=== PATIENT | female | born 1975 | race Caucasian/White ===

== ENCOUNTER 2020-11-22 10:29 | Outpatient (CLI) | payer OTHER, SELFPAY ==
--- NOTE | ~2020-11-22 | MM_ITS ---
EXAMINATION: MM screening padma BI w shaina HISTORY: Screening TECHNIQUE: Craniocaudal and mediolateral oblique 3-D tomosynthesis images were obtained and synthetic 2-D images were generated. CAD analysis was submitted and interpreted. COMPARISON: Comparison to multiple prior studies sequentially, with oldest reviewed study dated 07/26. BREAST PARENCHYMAL COMPOSITION: There are scattered areas of fibroglandular density. FINDINGS: There is a focal asymmetry inferiorly in the left breast, middle third on MLO view. The rig ht breast is stable without evidence for malignancy. IMPRESSION: 1. New focal asymmetry inferiorly in the left breast on MLO view. 2. Additional mammographic views and possible breast ultrasound are recommended. BI-RADS Category 0: Incomplete: Needs additional imaging evaluation. Reviewed, dictated and finalized at location A. KLAYER PAVING BRICK IMPRESSION: 1. New focal asymmetry inferiorly in the left breast on MLO view. 2. Additional mammographic views and possible breast ultrasound are recommended . BI-RADS Category 0: Incomplete: Needs additional imaging evaluation.
== END 2020-11-22 10:30 | disposition home or self-care (01) ==
LOC: ANHIMG 10:36
PROVIDERS: Visit Provider Obstetrics & Gynecology
DX: Z12.31 Encounter for screening mammogram for malignant neoplasm of breast (principal); R92.8 Other abnormal and inconclusive findings on diagnostic imaging of breast
CPT/HCPCS: 77063; 77067

== ENCOUNTER 2020-12-20 13:00 | Outpatient (CLI) | payer OTHER, SELFPAY ==
--- NOTE | ~2020-12-20 | MMUS_ITS ---
EXAMINATION: MM diagnostic mammo unilat LT, US breast LT limited HISTORY: Left breast asymmetry on screening mammogram TECHNIQUE: Additional 3-D tomosynthesis images of the left breast were performed and synthetic 2-D im ages were generated. CAD analysis was submitted and interpreted. High resolution limited left breast ultrasound was performed. COMPARISON: 11/22/2020, 11/08/2019, 11/04/2018 FINDINGS: MAMMOGRAPHIC FINDINGS: There is 6 mm x 4 mm oval, circumscribed, equal density mass in the middle third of the outer breast at the 9:00 location 6 cm from the nipple. ULTRASOUND: There is no evidence of focal abnormal solid or cystic lesion in the vicinity of the mammographic fin ding in question. IMPRESSION: 1. Probably benign left breast mass. 2. Recommend 6 month follow-up left diagnostic mammogram and ultrasound if necessary. BI-RADS category 3, probably benign findings. Reviewed, dictated and finalized at location A. RTISEMENT DISTRIBUTOR IMPRESSION: 1. Probably benign left breast mass. 2. Recommend 6 month follow-up left diagnostic mammogram and ultrasound if nece ssary. BI-RADS category 3, probably benign findings.
== END 2020-12-20 13:01 | disposition home or self-care (01) ==
PROVIDERS: Visit Provider Obstetrics & Gynecology
DX: R92.8 Other abnormal and inconclusive findings on diagnostic imaging of breast (principal)
CPT/HCPCS: 76642; 77065

== ENCOUNTER 2021-05-27 11:25 | Outpatient (CLI) | payer OTHER, SELFPAY ==
--- NOTE | ~2021-05-27 | MMUS_ITS ---
EXAMINATION: MM diagnostic padma LT w shaina, US breast LT limited HISTORY: Follow-up left breast mass TECHNIQUE: Additional 3-D tomosynthesis images of the left breast were performed and synthetic 2-D im ages were generated. CAD analysis was submitted and interpreted. High resolution left breast ultrasou nd was performed. COMPARISON: Comparison to multiple prior studies sequentially, with oldest reviewed study dated 01/10/2016. BREAST PARENCHYMAL COMPOSITION: Breast composed of scattered areas of fibroglandular density. FINDINGS: MAMMOGRAPHIC FINDINGS: There are no suspicious masses, calcifications or architectural distortion left breast to suggest mal ignancy. ULTRASOUND: Normal heterogeneous echotexture without focal solid or cystic mass. IMPRESSION: 1. No evidence for malignancy in the left breast. 2. Routine yearly screening mammogram and regular clinical breast examination are recommended. BI-RADS Category 1: Negative Reviewed, dictated and finalized at location A. IMPRESSION: 1. No evidence for malignancy in the left breast. 2. Routine yearly screening mammogram and regular clinical breast examination a re recommended. BI-RADS Category 1: Negative
== END 2021-05-27 11:26 | disposition home or self-care (01) ==
LOC: ANHIMG 11:26
PROVIDERS: Visit Provider Obstetrics & Gynecology
DX: R92.8 Other abnormal and inconclusive findings on diagnostic imaging of breast (principal)
CPT/HCPCS: 76642; 77061; 77065; G0279

== ENCOUNTER 2022-01-14 08:53 | Outpatient (CLI) | payer OTHER, SELFPAY ==
--- NOTE | ~2022-01-14 | MM_ITS ---
EXAMINATION: MM screening padma BI w shaina HISTORY: Screening mammogram TECHNIQUE: Craniocaudal and mediolateral oblique 3-D tomosynthesis images were obtained and synthetic 2-D images were generated. Bilateral rotated lateral CC views. CAD analysis was submitted and interp reted. COMPARISON: 05/27/2021 diagnostic left mammogram and limited left breast ultrasound examination 12/20/2020 diagnostic left mammogram and limited left breast ultrasound 11/22/2020, 11/08/2019, 11/04/2018 bilateral screening mammogram examinations BREAST PARENCHYMAL COMPOSITION: There are scattered areas of fibroglandular density. FINDINGS: There is no evidence of suspicious mass, calcification, or architectural distortion to sugg est malignancy in either breast. There has been no suspicious interval change. IMPRESSION: 1. No mammographic evidence of malignancy. 2. Recommend routine screening mammography in one year. BI-RADS Category 1: Negative Reviewed, dictated and finalized at location A.
== END 2022-01-14 08:54 | disposition home or self-care (01) ==
PROVIDERS: Visit Provider Obstetrics & Gynecology
DX: Z12.31 Encounter for screening mammogram for malignant neoplasm of breast (principal)
CPT/HCPCS: 77063; 77067

== ENCOUNTER 2022-12-01 10:59 | Outpatient (CLI) | payer OTHER, SELFPAY ==
[2022-12-01 11:24] LABS: Basophils Percent Auto 0.6 % (0.2-1.2); Eosinophils Absolute Auto 0.1 K/mm3 (0-0.3); Hematocrit 36.8 % (37.0-47.0); Hemoglobin 11.9 g/dL (12.0-15.0); Immature Granulocyte Absolute 0.02 K/mm3 (0.00-0.031); Immature Granulocyte Percent A 0.3 % (0-0.5); Lymphocytes Absolute Auto 2.25 K/mm3 (0.9-3.2); Lymphocytes Percent Auto 32.8 % (18.3-44.2); Mean Corpuscular HGB Conc 32.3 g/dl (32-36); Mean Corpuscular Hemoglobin 28.1 pg (26-34); Mean Platelet Volume 10.3 fl (7.4-10.4); Monocytes Absolute Auto 0.4 K/mm3 (0.1-0.6); Neutrophils Absolute Auto 4.1 K/mm3 (1.3-6.7); Neutrophils Percent Auto 59.3 % (45.5-73.1); Platelet Count Result 317 k/mm3 (150-375); Red Blood Count 4.23 M/mm3 (4.2-5.4); Red Cell Distribution Width 13.8 % (11.5-14.5); White Blood Count 6.9 K/mm3 (4.5-10.0)
[2022-12-01 11:30] LABS: Alanine Aminotransferase 14 U/L (6-35); Albumin Level 4.5 g/dL (3.5-5.1); Alkaline Phosphatase 57 U/L (38-126); Anion Gap 6 mmol/L (8-16); Aspartate Amino Transferase 25 U/L (14-36); Bilirubin,Total 0.5 mg/dL (0.2-1.3); Blood Urea Nitrogen 12 mg/dL (7-17); Carbon Dioxide 24 mmol/L (22-30); Chloride 104 mmol/L (98-107); Cholesterol 218 mg/dL (0-200); Estimated Glomerular Filt Rate > 60; Glucose 105 mg/dL (65-110); HDL Direct 48 mg/dL; Potassium 3.7 mmol/L (3.4-5.0); Sodium 134 mmol/L (137-145); Triglycerides 84 mg/dL (<150)
[2022-12-01 11:40] LABS: LDL Cholesterol Direct 117 mg/dL
[2022-12-01 12:02] LABS: Vitamin D 25 Hydroxy 30.7 ng/mL
[2022-12-01 12:10] LABS: HIV 1/2 Ab P24 Ag Result Negative (Negative)
[2022-12-01 12:15] LABS: Hepatitis B Surface Antigen Negative (Negative)
[2022-12-01 12:33] LABS: Hepatitis C Virus Antibody Negative (Negative)
[2022-12-02 15:17] LABS: Rapid Plasma Reagin Non-Reactive (NonReactive)
== END 2022-12-01 11:00 | disposition home or self-care (01) ==
PROVIDERS: Visit Provider Obstetrics & Gynecology
DX: Z00.00 Encounter for general adult medical examination without abnormal findings (principal); Z20.2 Contact with and (suspected) exposure to infections with a predominantly sexual mode of transmission
CPT/HCPCS: 36415; 80053; 80061; 82306; 84443; 85025; 86592; 86703; 86803; 87340; G0432

== ENCOUNTER 2022-12-04 09:26 | Outpatient (CLI) | payer OTHER, SELFPAY ==
--- NOTE | ~2022-12-04 | US_ITS ---
EXAMINATION: US thyroid DATE: 12/04/2022 10:14 INDICATION: Nontoxic goiter. TECHNIQUE: Multiple ultrasound images of the thyroid were obtained. COMPARISON: None. FINDINGS: The right thyroid lobe measures 6.0 x 2.7 x 2.4 cm. The left thyroid lobe measures 4.2 x 1.5 x 1.7 c m. In the right thyroid lobe, there is a 3.6 cm mixed cystic and solid, isoechoic, wider than tall n odule with smooth margin without echogenic foci (TI-RADS TR2). In the right thyroid lobe, there is a 7 mm solid, isoechoic, wider than tall nodule with smooth margin and peripheral calcifications (TR4). In the left thyroid lobe, there is a 6 mm solid, very hypoechoic, wider than tall nodule with smooth margin without echogenic foci (TR4). IMPRESSION: 1. Thyroid nodules, likely not clinically significant. No follow-up is needed. Reviewed, dictated and finalized at location A. COMPLIANCE
== END 2022-12-04 09:27 | disposition home or self-care (01) ==
PROVIDERS: Visit Provider Obstetrics & Gynecology
DX: E04.2 Nontoxic multinodular goiter (principal)
CPT/HCPCS: 76536

== ENCOUNTER 2023-01-16 14:02 | Outpatient (CLI) | payer OTHER, SELFPAY ==
--- NOTE | ~2023-01-16 | MM_ITS ---
EXAMINATION: MM screening padma BI w shaina HISTORY: Screening TECHNIQUE: Craniocaudal and mediolateral oblique 3-D tomosynthesis images were obtained and synthetic 2-D images were generated. CAD analysis was submitted and interpreted. COMPARISON: Comparison to multiple prior studies sequentially, with oldest reviewed study dated 11/04. BREAST PARENCHYMAL COMPOSITION: There are scattered areas of fibroglandular density. FINDINGS: The left breast is stable without evidence for malignancy. There is a new mass in the upper inner quadrant of the right breast, middle third. IMPRESSION: 1. New right breast mass. 2. Additional mammographic views and possible breast ultrasound are recommended. BI-RADS Category 0: Incomplete: Needs additional imaging evaluation. Reviewed, dictated and finalized at location A. IMPRESSION: 1. New right breast mass. 2. Additional mammographic views and possible breast ultrasound are recommended . BI-RADS Category 0: Incomplete: Needs additional imaging evaluation.
== END 2023-01-16 14:03 | disposition home or self-care (01) ==
PROVIDERS: Visit Provider Obstetrics & Gynecology
DX: Z12.31 Encounter for screening mammogram for malignant neoplasm of breast (principal); R92.8 Other abnormal and inconclusive findings on diagnostic imaging of breast
CPT/HCPCS: 77063; 77067

== ENCOUNTER 2023-01-19 10:01 | Day surgery (SDC) | payer OTHER, SELFPAY ==
[2023-01-08 08:19] VITALS: BMI 29.0
[2023-01-19 10:10] VITALS: BP 129/76; PULSE 78; RESP 20; TEMP 36.7; O2SAT 100
[2023-01-19] MEDS: LACTATED RINGERS 1,000 ML 150 ML IV CONT (10:23)
--- NOTE | 2023-01-19 10:25 | P.PNAN_ITS ---
Anes - Initial Pre Proc Eval Procedure: Operation Date: 01/19/23 11:30 Proposed Procedures p Screening Colonoscopy - Bala Caal MD Date/Time: 01/19/23 10:25 Surgeon: Bala Caal MD Pre Op Diagnosis: Neoplasm Screening Patient Data Age: 47 Gender: F Height: 1.7 m Weight: 84.4 kg Last Vital Signs Temp 36.7 C 01/19/23 10:10 Pulse 78 01/19/23 10:10 Resp 20 01/19/23 10:10 BP 129/76 01/19/23 10:10 Pulse Ox 100 01/19/23 10:10 O2 Del Method Room Air 01/19/23 10:10 Allergies Allergy/AdvReac Type Severity Reaction Status Date / Time acetaminophen [From Vicodin] Allergy Mild Rash Verified 01/19/23 10:14 hydrocodone [From Vicodin] Allergy Mild Rash Verified 01/19/23 10:14 Home Medications Medication Instructions Recorded Confirmed Type cholecalciferol (vitamin D3) 25 25 mcg PO DAILY 05/20/21 01/19/23 History mcg (1,000 unit) capsule ascorbic acid (vitamin C) 1,000 mg 1 g PO DAILY 12/01/22 01/19/23 History capsule zinc acetate 50 mg (zinc) capsule 50 mg PO DAILY 12/01/22 01/19/23 History (Galzin) Patient hx anesthesia problems: none Family hx anesthesia problems: none Results Review: All pre-operative results and documents have been reviewed as part of the pre- operative evaluation. [facility] Past Medical History Medical History Lipoma of shoulder Vaginal delivery Surgical History Surgical History Previous section x 2 Family History Family History Mother Family history of elevated blood lipids Grandparent Family history of coronary artery disease Diabetes mellitus Social History Social History Smoking status: Never smoker Second hand tobacco smoke exposure: No Alcohol intake: current Substance use: never Substance use type: does not use Lack of Transportation: No Lack of Food: Never True Current Housing: I Have Housing Concerned About Future Housing: No Difficulty Paying Gas/Electric Bills: No Difficulty Paying for Meds: No Currently Unemployed: No Education: Master's Degree or Higher Living arrangements: with family Spiritual care concerns: No Anes - Eval Final PreProcedure Day of Procedure 01/19/23 10:25 Patient weight: overweight Heart: regular rate and rhythm Lungs: clear to auscultation Airway: Mallampati scale class II Neurological: alert and oriented Last oral intake: >/= 8 hours ASA classification: II Emergent: no Anesthetic plan: proceed Anesthesia type and monitoring: general and standard monitoring Results Review: All pre-operative results and documents have been reviewed as part of the pre- operative evaluation. Informed Consent: The patient's anesthetic plan and its attendant risks and benefits were discussed with the patient/family/POA. Questions were solicited and answers provided to the satisfaction of the patient/family/POA.
--- NOTE | 2023-01-19 10:39 | PM.HPGS ---
History of Present Illness History of Present Illness Consent: Risks, benefits, and alternatives have been discussed and questions answered. Patient agrees to proceed with procedure. Chief complaint: Neoplasm Screening Narrative: Patty Brewer is a 47 year old female here for first screening colonoscopy Review of Systems Constitutional: Constitutional: Denies headache(s) and Denies weakness Eyes: Eyes: Denies blurry vision ENT: Reports Normal hearing present, Denies headache(s) and Denies neck pain Cardiovascular: Cardiovascular: Denies chest pain and Denies dyspnea Respiratory: Respiratory: Denies dyspnea Gastrointestinal: Gastrointestinal: Reports no additional gastrointestinal complaints Genitourinary: Genitourinary: Denies dysuria Musculoskeletal: Musculoskeletal: Denies neck pain Integumentary/Breasts: Skin/Breast: Denies dry skin Neurologic: Reports Normal hearing present, Denies headache(s) and Denies weakness Psychiatric: Psychiatric: Denies anxiety Endocrine: Endocrine: Denies change in body appearance Hematologic/Lymphatic: Hematologic/Lymphatic: Denies easy bleeding Allergic/Immunologic: Allergic/Immunologic: Denies urticaria PMFSH Past Medical History Medical History (Updated 01/19/23 @ 10:40 by Bala Caal MD) Colon cancer screening Lipoma of shoulder Vaginal delivery Surgical History Surgical History Previous section x 2 Family History Family History Mother Family history of elevated blood lipids Grandparent Family history of coronary artery disease Diabetes mellitus Social History Social History Smoking status: Never smoker Second hand tobacco smoke exposure: No Alcohol intake: current Substance use: never Substance use type: does not use Lack of Transportation: No Lack of Food: Never True Current Housing: I Have Housing Concerned About Future Housing: No Difficulty Paying Gas/Electric Bills: No Difficulty Paying for Meds: No Currently Unemployed: No Education: Master's Degree or Higher Living arrangements: with family Spiritual care concerns: No Meds Home Medications and Allergies Home Medications Medication Instructions Recorded Confirmed Type cholecalciferol (vitamin D3) 25 25 mcg PO DAILY 05/20/21 01/19/23 History mcg (1,000 unit) capsule ascorbic acid (vitamin C) 1,000 mg 1 g PO DAILY 12/01/22 01/19/23 History capsule zinc acetate 50 mg (zinc) capsule 50 mg PO DAILY 12/01/22 01/19/23 History (Galzin) Allergies Allergy/AdvReac Type Severity Reaction Status Date / Time acetaminophen [From Vicodin] Allergy Mild Rash Verified 01/19/23 10:14 hydrocodone [From Vicodin] Allergy Mild Rash Verified 01/19/23 10:14 Vital Signs Vital Signs - 24 hr 01/19/23 10:10 Temperature 98.0 F Pulse Rate 78 Respiratory Rate 20 Blood Pressure 129/76 Pulse Oximetry 100 Oxygen Delivery Room Air Exam Const: General: comfortable and no acute distress HENMT: Face/Nose/Sinus: Normal nares present Eyes: General: appearance normal, both eyes and all related structures Neck: Neck: no JVD Resp: Auscultation: clear to auscultation bilaterally Cardio: Rate: regular rate Rhythm: regular rhythm GI: Inspection: non-distended GI Palp: Yes Soft to palpation Skin: General skin exam: normal color Neuro: General: gait normal Speech: normal speech Extrem: General: normal to inspection Psych: Mental Status: mental status grossly normal Assessment and Plan Assessment and plan (1) Colon cancer screening: Code(s): Z12.11 - Encounter for screening for malignant neoplasm of colon Status: Acute Assessment and Plan: colonoscopy
[2023-01-19 10:58] VITALS: BP 107/69; PULSE 82; RESP 16; O2SAT 100
[2023-01-19 11:08] VITALS: BP 97/64; PULSE 78; RESP 16; O2SAT 100
--- NOTE | 2023-01-19 11:09 | SUR.PHASEII ---
PT AWAKE AND ALERT. TALKATIVE. FAMILY AT BEDSIDE. EATING AND DRINKING. DENIES PAIN OR NAUSEA,.
[2023-01-19 11:18] VITALS: BP 108/68; PULSE 68; RESP 16; O2SAT 100
--- NOTE | 2023-01-19 11:35 | WPDANESPN ---
Anes - Prog Note Post-Op Date/Time: 01/19/23 11:35 Cardiovascular status: normal Respiratory status: normal Airway patency: baseline Mental status: baseline Post-Op hydration status: normal Vital Signs: Last Vital Signs Temp 36.7 C 01/19/23 10:10 Pulse 68 01/19/23 11:18 Resp 16 01/19/23 11:18 BP 108/68 01/19/23 11:18 Pulse Ox 100 01/19/23 11:18 O2 Del Method Room Air 01/19/23 11:18 Pain Score (VAS): 0 I/O: Intake & Output 01/18/23 01/19/23 01/19/23 23:59 07:59 15:59 Intake Total 450 Balance 450 Patient Feedback: Patient satisfied with anesthetic care.
== END 2023-01-19 11:28 | disposition home or self-care (01) ==
PROVIDERS: Visit Provider Internal Medicine Gastroenterology
PROC: 0DJD8ZZ Inspection of Lower Intestinal Tract, Via Natural or Artificial Opening Endoscopic (ICD-10-PCS; CPT 45378; principal; 2023-01-19 11:30)
DX: Z12.11 Encounter for screening for malignant neoplasm of colon (principal)
CPT/HCPCS: 45378

== ENCOUNTER 2023-02-06 12:41 | Outpatient (CLI) | payer OTHER, SELFPAY ==
--- NOTE | ~2023-02-06 | MMUS_ITS ---
EXAMINATION: MM diagnostic pdama RT w shaina, US breast RT limited HISTORY: New right breast mass reported on 01/12/2023 screening mammogram TECHNIQUE: Additional 3-D tomosynthesis images of were performed and synthetic 2-D images were genera siddhartha. CAD analysis was submitted and interpreted. High resolution breast ultrasound was performed. COMPARISON: 01/12/2023, 01/14/2022, 11/14/2020 bilateral screening mammogram examinations BREAST PARENCHYMAL COMPOSITION: There are scattered areas of fibroglandular density. FINDINGS: MAMMOGRAPHIC FINDINGS: There is a new circumscribed approximately 6 mm mass at mid to posterior depth in the upper inner amanda drant of the right breast at approximately 2:00 position. This was not present on previous mammograms of 01/14/2022 11/22/2020. ULTRASOUND: There is an irregular hypoechoic lesion at 2:00 8 cm from the nipple, measuring up to approximately 6 .2 mm maximal dimension. Considering some irregularity of the margins and the fact that this is a new finding, ultrasound-guided biopsy is recommended. IMPRESSION: 1. New up to 6 mm mildly irregular hypoechoic mass of right breast at 2:00 8 cm from nipple 2. Ultrasound-guided biopsy of right breast 2:00 lesion 8 cm from nipple is recommended BI-RADS category 4, suspicious findings. Dr. Hillman telephoned the report and ultrasound-guided biopsy recommendation on February 06, 2023 at 1352 hours to Obey Maxwell Reviewed, dictated and finalized at location A. IMPRESSION: 1. New up to 6 mm mildly irregular hypoechoic mass of right breast at 2:00 8 cm from nipple 2. Ultrasound-guided biopsy of right breast 2:00 lesion 8 cm from nipple is rec ommended BI-RADS category 4, suspicious findings. Dr. Hillman telephoned the report and ultrasound-guided biopsy recommendation on A 2022 at 1352 hours to Obey Maxwell IMPRESSION: 1. New up to 6 mm mildly irregular hypoechoic mass of right breast at 2:00 8 cm from nipple 2. Ultrasound-guided biopsy of right breast 2:00 lesion 8 cm from nipple is rec ommended BI-RADS category 4, suspicious findings. Dr. Hillman telephoned the report and ultrasound-guided biopsy recommendation on A pril 2022 at 1352 hours to Obey Maxwell
== END 2023-02-06 12:42 | disposition home or self-care (01) ==
LOC: ANHIMG 12:42
PROVIDERS: Visit Provider Obstetrics & Gynecology
DX: N63.12 Unspecified lump in the right breast, upper inner quadrant (principal)
CPT/HCPCS: 76642; 77061; 77065; G0279

== ENCOUNTER 2023-02-26 10:00 | Outpatient (CLI) | payer OTHER, SELFPAY ==
--- NOTE | ~2023-02-26 | MMUS_ITS ---
EXAMINATION: US breast biopsy RT w image, MM post biopsy invasive RT DATE: 02/26/2023 11:37 (accession [id number]), 02/26/2023 11:25 (accession [id number]) INDICATION: Indeterminate mass in the upper outer quadrant of the right breast. Ultrasound-guided cor e biopsy is requested to evaluate for malignancy. TECHNIQUE AND FINDINGS: The risks and potential benefits of the procedure were discussed with the patient including bleeding and infection. A time out was performed. The skin of the right breast was prepared and draped in usua l sterile fashion. 1% lidocaine was used for superficial anesthesia. 1% lidocaine with epinephrine wa s used for deep anesthesia. A vacuum-assisted biopsy needle was advanced through to the outer edge of the region of interest from an inferior approach utilizing sonographic guidance. A total of three tissue core samples were obtai ginger through the lesion. A tissue marker clip was then placed at the biopsy site. Hemostasis was achie monica. A sterile bandage was applied. The patient tolerated procedure well and there was no evidence of immediate complication. The patient was given verbal instructions to return to the Emergency Department in the event of severe breast pa in or rapid breast enlargement. A two view right breast mammogram was obtained to document tissue mar ker clip placement. IMPRESSION: 1. Successful ultrasound-guided vacuum-assisted biopsy of right breast mass with tissue marker placem ent. Reviewed, dictated and finalized at location A. IMPRESSION: 1. Successful ultrasound-guided vacuum-assisted biopsy of right breast mass wit h tissue marker placement.
== END 2023-02-26 10:01 | disposition home or self-care (01) ==
PROVIDERS: Visit Provider Surgery
DX: N63.10 Unspecified lump in the right breast, unspecified quadrant (principal)
CPT/HCPCS: 19083; 88305; A4648

== ENCOUNTER 2023-09-08 11:44 | Outpatient (CLI) | payer OTHER, SELFPAY ==
--- NOTE | ~2023-09-08 | MM_ITS ---
EXAMINATION: MM diagnostic padma RT w shaina HISTORY: Follow-up after benign right breast biopsy TECHNIQUE: Craniocaudal, mediolateral, and mediolateral oblique 3-D tomosynthesis images of the right breast were performed and synthetic 2-D images were generated. CAD analysis was submitted and interp reted. COMPARISON: 02/26/2023, 02/06/2023, 01/16/2023, 01/14/2022, 11/14/2020 BREAST PARENCHYMAL COMPOSITION: There are scattered areas of fibroglandular density. FINDINGS: A biopsy marker is present at the site of the previously described right breast mass. The b reast mass is no longer evident. No suspicious mass, calcification, or architectural distortion are i dentified. There has been no suspicious interval change. IMPRESSION: 1. No mammographic evidence of malignancy. 2. Recommend routine screening mammography, due in December 2023. BI-RADS Category 1: Negative Reviewed, dictated and finalized at location A. CTOR OF SCOUT WORK
== END 2023-09-08 11:45 | disposition home or self-care (01) ==
PROVIDERS: Visit Provider Surgery
DX: N63.10 Unspecified lump in the right breast, unspecified quadrant (principal); R92.8 Other abnormal and inconclusive findings on diagnostic imaging of breast
CPT/HCPCS: 77061; 77065; G0279

== ENCOUNTER 2024-05-02 14:31 | Outpatient (CLI) | payer OTHER, SELFPAY ==
--- NOTE | ~2024-05-02 | MM_ITS ---
EXAMINATION: MM screening padma BI w shaina HISTORY: Screening TECHNIQUE: Craniocaudal and mediolateral oblique 3-D tomosynthesis images were obtained and synthetic 2-D images were generated. CAD analysis was submitted and interpreted. COMPARISON: Comparison to multiple prior studies sequentially, with oldest reviewed study dated 11/2020. BREAST PARENCHYMAL COMPOSITION: Not dense: There are scattered areas of fibroglandular density. FINDINGS: There are developing masses in the upper outer quadrant of the right breast posteriorly in the mid lateral aspect of the left breast, middle third. There are no suspicious calcifications. IMPRESSION: 1. Developing bilateral breast masses. 2. Additional mammographic views and possible breast ultrasound are recommended. BI-RADS Category 0: Incomplete: Needs additional imaging evaluation. Reviewed, dictated and finalized at location B. IMPRESSION: 1. Developing bilateral breast masses. 2. Additional mammographic views and possible breast ultrasound are recommended . BI-RADS Category 0: Incomplete: Needs additional imaging evaluation.
== END 2024-05-02 14:32 | disposition home or self-care (01) ==
PROVIDERS: PCP Obstetrics & Gynecology; Visit Provider Surgery
DX: Z12.31 Encounter for screening mammogram for malignant neoplasm of breast (principal); N63.11 Unspecified lump in the right breast, upper outer quadrant
CPT/HCPCS: 77063; 77067

== ENCOUNTER 2024-05-13 12:13 | Outpatient (CLI) | payer OTHER, SELFPAY ==
--- NOTE | ~2024-05-13 | MMUS_ITS ---
EXAMINATION: MM diagnostic padma BI w shaina, US breast BI limited HISTORY: Follow-up breast asymmetries TECHNIQUE: Additional 3-D tomosynthesis images of the breasts were performed and synthetic 2-D images were generated. CAD analysis was submitted and interpreted. High resolution limited bilateral breast ultrasound was performed. COMPARISON: Comparison to multiple prior studies sequentially, with oldest reviewed study dated 12/25. BREAST PARENCHYMAL COMPOSITION: Not dense: There are scattered areas of fibroglandular density. FINDINGS: MAMMOGRAPHIC FINDINGS: The right breast is stable without evidence for malignancy. Focal asymmetry laterally compresses with spot views, compatible with superimposed fibroglandular tissue. There is a small mass in the outer a spect of the left breast, middle third with central lucency, likely benign. There are no suspicious c alcifications or architectural distortion in either breast. ULTRASOUND: Limited right breast ultrasound: Normal heterogeneous echotexture without focal solid or cystic mass. Limited left breast ultrasound: At 12:00, 3 cm from the nipple, there is a cluster of cysts, largest measuring approximately 6 mm cyst. At 3:00, 4 cm from the nipple, there is a a 7 mm cyst. This corres ponds to the mammographic abnormality. No suspicious masses to suggest malignancy. IMPRESSION: 1. No evidence for malignancy in either breast. Benign findings of the left breast. 2. Routine yearly screening mammogram and regular clinical breast examination are recommended. BI-RADS Category 2: Benign finding(s). Reviewed, dictated and finalized at location B. IMPRESSION: 1. No evidence for malignancy in either breast. Benign findings of the left alexia ast. 2. Routine yearly screening mammogram and regular clinical breast examination a re recommended. BI-RADS Category 2: Benign finding(s).
== END 2024-05-13 12:14 | disposition home or self-care (01) ==
LOC: ANHIMG 12:14
PROVIDERS: PCP Obstetrics & Gynecology; Visit Provider Surgery
DX: R92.8 Other abnormal and inconclusive findings on diagnostic imaging of breast (principal); N63.10 Unspecified lump in the right breast, unspecified quadrant; N63.20 Unspecified lump in the left breast, unspecified quadrant
CPT/HCPCS: 76642; 77062; 77066; G0279

== ENCOUNTER 2025-07-10 13:35 | Outpatient (CLI) | payer OTHER, SELFPAY ==
[2025-07-10 13:52] LABS: Hematocrit 37.4 % (37.0-47.0); Hemoglobin 12.7 g/dL (12.0-15.0); Mean Corpuscular HGB Conc 34.0 g/dl (32-36); Mean Corpuscular Hemoglobin 30.0 pg (26-34); Mean Corpuscular Volume 88.2 fl (80-100); Platelet Count Result 322 k/mm3 (150-375); Red Blood Count 4.24 M/mm3 (4.2-5.4); White Blood Count 8.2 K/mm3 (4.5-10.0)
[2025-07-10 14:19] LABS: Alanine Aminotransferase 12 U/L (6-35); Albumin Level 4.3 g/dL (3.5-5.1); Alkaline Phosphatase 59 U/L (38-126); Anion Gap 8 mmol/L (4-12); Aspartate Amino Transferase 25 U/L (14-36); Bilirubin,Total 0.5 mg/dL (0.2-1.3); Blood Urea Nitrogen 13 mg/dL (7-17); Calcium 9.3 mg/dL (8.4-10.2); Carbon Dioxide 24 mmol/L (22-30); Chloride 102 mmol/L (98-107); Cholesterol 235 mg/dL (0-200); Estimated Glomerular Filt Rate > 60; Glucose 98 mg/dL (65-110); HDL Direct 52 mg/dL; Potassium 3.6 mmol/L (3.4-5.0); Sodium 134 mmol/L (137-145); Total Protein 7.4 g/dL (6.3-8.2); Triglycerides 89 mg/dL (<150)
[2025-07-10 14:55] LABS: Thyroid Stimulating Hormone 2.730 uIU/mL (0.465-4.680)
--- OUTSIDE RECORDS SUMMARY | 2025-07-10 16:09 | XMS_ITS | Clinical Summary ---
Author Organization [email or web address] [address] [facility] [address] [place] [address] Phone Care Team Providers Care Technical Operations Specialist Name Role Phone Not Found, Stl Primary Care Provider Unavailabl e Social History Tobacco Use Types Packs/Day Years Used Date Smoking Tobacco: Never Assessed Comments Unknown Sex and Gender Information Value Date Recorded Sex Assigned at Not on file Legal Sex Female 3:48 PM CDT Gender Identity Not on file Sexual Orientation Not on file Plan of Treatment Health Maintenance Due Date Last Done Comments DTAP/TDAP/TD VACCINES (1 - Tdap) 1996 HEPATITIS B VACCINES (1 of 3 - 19+ 3-dose series) 10/1995 HPV/Cotest (21-29) 1998 CERVICAL CANCER SCREENING 2007 HPV/Cotest (30-65) 2007 PAP SMEAR 2007 BREAST CANCER SCREENING 2017 COLORECTAL SCREENING 2022 Colorectal Cancer Screening 2022 FIT-DNA Q 3 years 2022 FIT/FOBT Q 1 year 2022 Flex Sig/CT Colonography Q 5 years 2022 INFLUENZA VACCINE (#1) 2025 Insurance BCBS BLUE ACCESS/TRUE BLUE PPO Care Teams Technical Operations Specialist Relationship Specialty Start Date End Date Not Found, Stl NO ADDRESS ON FILE PCP - General 08/03/13
== END 2025-07-10 13:36 | disposition home or self-care (01) ==
LOC: ANHLAB 13:36
PROVIDERS: Visit Provider Obstetrics & Gynecology
DX: N95.1 Menopausal and female climacteric states (principal)
CPT/HCPCS: 36415; 80053; 80061; 82306; 84443; 85027